=== PATIENT | female | born 1970 | race African-American/Black ===

== ENCOUNTER 2019-02-19 10:33 | Outpatient (CLI) | payer OTHER ==
--- NOTE | 2019-02-19 11:28 | MMO ---
Bilateral MAMMO Bilat Screen [facility]. CLINICAL HISTORY: Patient is 48 years old and is seen for screening. The patient has no family history of breast cancer. The patient has no personal history of cancer. VIEWS: The views performed were: bilateral craniocaudal with tomosynthesis and bilateral mediolateral oblique with tomosynthesis. FILMS COMPARED: The present examination has been compared to prior imaging studies performed at [facility] on 04/13/2013, 06/04/2014, 06/28/2015 and 10/25/2016. MAMMOGRAM FINDINGS: There are scattered fibroglandular densities. There are stable intramammary lymph nodes seen in the axillary tail of both breasts. There are no suspicious masses, suspicious calcifications, or new areas of architectural distortion. IMPRESSION: THERE IS NO MAMMOGRAPHIC EVIDENCE OF MALIGNANCY. A ROUTINE FOLLOW-UP MAMMOGRAM IN 1 YEAR IS RECOMMENDED. THE RESULTS OF THIS EXAM WERE SENT TO THE PATIENT. ACR BI-RADS Category 2 - Benign finding MAMMOGRAPHY NOTE: 1. A negative mammogram report should not delay a biopsy if a dominant of clinically suspicious mass is present. 2. Approximately 10% to 15% of breast cancers are not detected by mammography. 3. Adenosis and dense breasts may obscure an underlying neoplasm.
== END 2019-02-19 10:34 | disposition home or self-care (01) ==
LOC: BICMAMMO 10:33
PROVIDERS: ATTEND Physician Assistant
DX: Z12.31 Encounter for screening mammogram for malignant neoplasm of breast (principal)
CPT/HCPCS: 77063; 77067

== ENCOUNTER 2019-04-08 06:53 | Day surgery (SDC) | payer OTHER ==
[2019-04-07 10:01] VITALS: BMI 48.8
--- NOTE | 2019-04-07 12:57 | HP ---
HISTORY OF PRESENT ILLNESS: Ms. Marguerite Carr is a 48-year-old female referred to me for a colonoscopy for colon cancer screening. The patient has no specific GI symptoms. She has had constipation off and on and has been taking stool softeners. The patient _has history of mild hematochezia off and on with constipation. The patient underwent colonoscopy for colon cancer screening. ALLERGIES: NONE. SOCIAL HISTORY: The patient does not smoke or drink alcohol. MEDICAL ILLNESS: 1. Hypertension. 2. Obesity. 3. Bronchial asthma. 4. Migraine. 5. Tubal ligation. 6. Osteoarthritis. 7. Allergic rhinitis. PHYSICAL EXAMINATION: GENERAL: The patient is obese. VITAL SIGNS: Her weight is 253 pounds. Pulse is 68, blood pressure 140/100. CARDIOVASCULAR SYSTEM: First and second heart sounds are normal. LUNGS: Clear to auscultation. ABDOMEN: Soft. No organomegaly. No tenderness. No masses. ADMITTING DIAGNOSIS: A 48-year-old female comes for a colonoscopy for colon cancer screening. Job ID: [id number] MTDD
--- NOTE | 2019-04-08 10:29 | OP ---
DATE OF PROCEDURE: 04/08/2019 PREOPERATIVE DIAGNOSIS: A 48-year-old female, who underwent colonoscopy for colon cancer screening. POSTOPERATIVE DIAGNOSES: 1. Pedunculated polyp in the sigmoid colon, status post snare cautery with good hemostasis. 2. Scattered diverticular disease to transverse colon, mild from sigmoid colon. 3. Hemorrhoids. PROCEDURES PERFORMED: 1. Colonoscopy with polypectomy. 2. Colonoscopy with 7-Finnish BiCap probe of polypectomy site because of mild bleeding. DESCRIPTION OF PROCEDURE: The patient was placed on her left lateral position and was given sedation by Anesthesia Department. A rectal exam was done before the scope was advanced into the rectum. No lesions were felt on rectal exam. A Pentax video colonoscope was introduced into the rectum and advanced all the way into the cecum. The prep was good. The patient had a small amount of fecal material coating the mucosa. The ileocecal area, cecum, ascending colon, hepatic flexure, no pathology seen. The patient does have mild scattered diverticula from sigmoid colon all the way to the hepatic flexure. A pedunculated polyp over the sigmoid colon removed with snare cautery. The polypectomy site did not cauterize very well. A 7-Finnish BiCap probe was passed through the biopsy channel and the polypectomy site cauterized with good hemostasis. Rectum showed hemorrhoids. DISCHARGE PLANNING: This is a 48-year-old female, who came for colonoscopy for colon cancer screening. She underwent colonoscopy with polypectomy. DISCHARGE RECOMMENDATIONS: 1. The patient advised to call me if she develops abdominal pain, hematochezia, or fever. 2. In the absence of any of the above symptoms, she will come back to me in 2 weeks. Job ID: [id number]
[2019-04-08] MEDS ORDERED: PROPOFOL 200 MG/20 ML VIAL ONE (17:06)
== END 2019-04-08 10:24 | disposition home or self-care (01) ==
LOC: SDC 06:53
PROVIDERS: ATTEND Internal Medicine Gastroenterology
PROC: 0DBN8ZZ Excision of Sigmoid Colon, Via Natural or Artificial Opening Endoscopic (ICD-10-PCS; principal; 2019-04-08)
DX: Z12.11 Encounter for screening for malignant neoplasm of colon (principal); D12.5 Benign neoplasm of sigmoid colon; K57.30 Diverticulosis of large intestine without perforation or abscess without bleeding; I10 Essential (primary) hypertension; M19.90 Unspecified osteoarthritis, unspecified site; J45.909 Unspecified asthma, uncomplicated; E66.9 Obesity, unspecified; Z68.42 Body mass index [BMI] 45.0-49.9, adult
CPT/HCPCS: 88305; J2704